=== PATIENT | female | born 1990 | race Two or more races ===

== ENCOUNTER 2017-02-17 14:30 | Outpatient (CLI) | payer OTHER | END 2017-02-17 14:31 | disposition home or self-care (01) | DX: G47.10 Hypersomnia, unspecified (principal); G47.8 Other sleep disorders; R06.83 Snoring ==

== ENCOUNTER 2017-03-01 21:33 | Emergency (ER) | payer OTHER ==
[2017-03-01] MEDS ORDERED: HYDROcod/ACETAM 5/325 MG TABLET PO STA (21:55)
--- NOTE | 2017-03-01 21:57 | ED Physician Documentation ---
History of Present Illness - Stated complaint Stated Complaint: GLF - Chief complaint Chief Complaint: General - History obtained from History obtained from: Patient - History of Present Illness Timing: Today (At [facility] she fell directly on her tailbone and has severe pain there. No other injuries. She did not hit her head. She does feel dizzy and out of sorts from the pain.) - Additonal information Additional information: no possibility of Review of Systems Constitutional: reports: Reviewed and negative Cardiac: reports: Reviewed and negative Respiratory: reports: Reviewed and negative PD PAST MEDICAL HISTORY - Past Surgical History Past Surgical History: No - Present Medications Home Medications: Ambulatory Orders Medication Instructions Recorded Confirmed HYDROcod/ACETAM 5/325 [[place] 5/325] 1 - 2 ea PO Q6H PRN #15 tablet 03/01/17 Ibuprofen 800 mg PO Q6HR PRN 03/01/17 03/01/17 Phentermine HCl 15 mg PO BID 03/01/17 03/01/17 - Allergies Allergies/Adverse Reactions: Allergies Allergy/AdvReac Type Severity Reaction Status Date / Time No Known Drug Allergies Allergy Verified 03/01/17 21:48 - Social History Does the pt smoke?: No Smoking Status: Former smoker Does the pt drink ETOH?: Yes Does the pt have substance abuse?: No - Immunizations Immunizations are current?: Yes PD ED PE NORMAL - Vitals Vital signs reviewed: Yes - General General: Alert and oriented X 3, Other (tearful, anxious) - HEENT HEENT: PERRL, EOMI - Neck Neck: Supple, no meningeal sign, No bony TTP - Back Back: Other (Normal gait, TTP coccyx) - Neuro Neuro: Alert and oriented X 3, Normal speech - Psych Psych: Normal mood, Normal affect Results - Vitals Vitals: Vital Signs - 24 hr 03/01/17 21:43 Temperature 36.8 C Heart Rate 89 Respiratory 18 Rate Blood Pressure 123/86 H O2 Saturation 98 Oxygen O2 Source Room air - Rads (name of study) Sacrum/coccyx Radiology: EMP read contemporaneously (minimally displaced coccyx frx) Departure - Departure Disposition: 01 Home, Self Care Clinical Impression: Fractured coccyx Qualifiers: Encounter type: initial encounter Fracture type: closed Qualified Code(s): S32.2XXA - Fracture of coccyx, initial encounter for closed fracture Condition: Good Record reviewed to determine appropriate education?: Yes Instructions: ED Fx Coccyx Prescriptions: HYDROcod/ACETAM 5/325 [[place] 5/325] 1 - 2 ea PO Q6H PRN #15 tablet PRN Reason: Pain Comments: Your blood pressure was elevated today on check in to the emergency department. This does not mean that you have hypertension, it is a common phenomenon to check into the emergency department and have elevated blood pressure. I recommend that you see your primary care physician within the week to have it rechecked when you're feeling better. Forms: Activity restrictions
[2017-03-01] MEDS ORDERED: HYDROcod/ACETAM 5/325 MG TABLET ONE (22:01)
--- NOTE | 2017-03-01 22:46 | XRAY Preliminary Report ---
Exam: XR Sacrum/Coccyx IMPRESSION: Minimally displaced coccygeal fracture. [facility] SITE ID: [id number]
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
[2017-03-01 23:06] VITALS: BP 105/66
== END 2017-03-01 23:05 | disposition home or self-care (01) ==
LOC: ED 21:33
DX: S32.2XXA Fracture of coccyx, initial encounter for closed fracture (principal); V00.121A Fall from non-in-line roller-skates, initial encounter; Y93.51 Activity, roller skating (inline) and skateboarding; Y92.331 Roller skating rink as the place of occurrence of the external cause; R03.0 Elevated blood-pressure reading, without diagnosis of hypertension; Z87.891 Personal history of nicotine dependence
CPT/HCPCS: 72220; 99283; A9270

== ENCOUNTER 2017-03-17 19:21 | Outpatient (CLI) | payer OTHER | END 2017-03-17 19:22 | disposition home or self-care (01) | LOC: SC 19:21 | PROVIDERS: ATTEND Internal Medicine Pulmonary Disease | DX: G47.61 Periodic limb movement disorder (principal) | CPT/HCPCS: 95810 ==

== ENCOUNTER 2017-03-27 12:42 | Emergency (ER) | payer OTHER ==
[2017-03-27] MEDS ORDERED: PROMETHAZINE INJ 25 MG in SODIUM CHLORIDE 0.9% 50 ML IV STA (13:01)
[2017-03-27] MEDS ORDERED: SODIUM CHLORIDE 0.9% 1,000 ML IV ONE (13:01)
--- NOTE | 2017-03-27 13:03 | ED Physician Documentation ---
PD HPI NVD - Stated complaint Stated Complaint: DIZZY,VOMITING - Chief complaint Chief Complaint: Abd Pain - History obtained from History obtained from: Patient - History of Present Illness Timing - onset: Today, Other (Shortly after getting to work this morning at 645 she developed a gradual onset frontal throbbing headache which has improved, this was followed by several episodes of vomiting and feels dizzy, somewhat of a mixture between vertigo and lightheadedness. It is worse if she stands up. It less so if she rotates her head. She denies any fevers. No dominant pain or diarrhea. No sick contacts or recent travel. 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 HEENT: None Psych: None Musculoskeletal: None Derm: None, Eczema - Past Surgical History Past Surgical History: No - Present Medications Home Medications: Ambulatory Orders Medication Instructions Recorded Confirmed HYDROcod/ACETAM 5/325 [[place] 5/325] 1 - 2 ea PO Q6H PRN #15 tablet 03/01/17 Ibuprofen 800 mg PO Q6HR PRN 03/01/17 03/01/17 Phentermine HCl 15 mg PO BID 03/01/17 03/01/17 Meclizine [Antivert] 25 mg PO Q6H PRN #20 tablet 03/27/17 Ondansetron HCl [Zofran] 4 mg PO Q6H PRN #10 tablet 03/27/17 - Allergies Allergies/Adverse Reactions: Allergies Allergy/AdvReac Type Severity Reaction Status Date / Time No Known Drug Allergies Allergy Verified 03/01/17 21:48 - Social History Does the pt smoke?: No Smoking Status: Former smoker Does the pt drink ETOH?: Yes Does the pt have substance abuse?: No - Immunizations Immunizations are current?: Yes PD ED PE NORMAL - Vitals Vital signs reviewed: Yes - General General: Alert and oriented X 3, No acute distress - HEENT HEENT: PERRL, EOMI, Pharynx benign - Neck Neck: Supple, no meningeal sign, No bony TTP - Cardiac Cardiac: RRR, No murmur - Respiratory Respiratory: No respiratory distress, Clear bilaterally - Abdomen Abdomen: Soft, Non tender - Extremities Extremities: No edema, No calf tenderness / cord - Neuro Neuro: Alert and oriented X 3, 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, No motor deficit, No sensory deficit, Normal speech - Psych Psych: Normal mood, Normal affect Results - Vitals Vitals: Vital Signs - 24 hr 03/27/17 03/27/17 12:50 14:08 Temperature 36.1 C L Heart Rate 107 H 72 Respiratory 18 16 Rate Blood Pressure 117/80 108/67 O2 Saturation 96 100 Oxygen O2 Source Room air - Labs Labs: Laboratory Tests 03/27/17 03/27/17 03/27/17 13:20 13:35 13:35 WBC 10.2 RBC 4.41 Hgb 12.8 Hct 37.8 MCV 85.8 MCH 29.0 MCHC 33.8 RDW 15.2 H Plt Count 322 MPV 7.7 L Neut # 6.9 H Lymph # 2.4 [place] # 0.7 Eos # 0.0 Baso # 0.1 Absolute Nucleated RBC 0.00 Nucleated RBCs 0.0 Sodium 136 Potassium 3.7 Chloride 101 Carbon Dioxide 25 Anion Gap 10.0 BUN 17 Creatinine 0.6 Estimated GFR (MDRD) 123 Glucose 92 Calcium 9.4 Total Bilirubin 0.3 AST 23 ALT 17 Alkaline Phosphatase 55 Total Protein 7.8 Albumin 4.2 Globulin 3.6 Albumin/Globulin Ratio 1.2 Lipase 16 L Urine Color YELLOW Urine Clarity CLEAR Urine pH >=9.0 H Ur Specific [place] 1.010 Urine Protein 30 H Urine Glucose (UA) NEGATIVE Urine Ketones NEGATIVE Urine Occult Blood LARGE H Urine Nitrite NEGATIVE Urine Bilirubin NEGATIVE Urine Urobilinogen 0.2 (NORMAL) Ur Leukocyte Esterase NEGATIVE Urine RBC 11-25 H Urine WBC 0-3 Ur Squamous Epith Cells FEW Squamous Urine Bacteria None Seen Ur Microscopic Review INDICATED Urine Culture Comments NOT INDICATED Urine HCG, Qual NEGATIVE PD MEDICAL DECISION MAKING - ED course ED course: 26 yo woman with nonspecific dizziness, more vertigo than lighteheaded, preceded by headache, gradual and not worst of life and followed by N/V. Feeling better after phenergan IV and fluids. Dizziness gone. Low suspicioun for SAH given above clinical symptoms. Departure - Departure Disposition: 01 Home, Self Care Clinical Impression: Dizziness and giddiness Vomiting Qualifiers: Vomiting type: unspecified Vomiting Intractability: non-intractable Nausea presence: with nausea Qualified Code(s): R11.2 - Nausea with vomiting, unspecified Headache Qualifiers: Headache type: unspecified Headache chronicity pattern: acute headache Intractability: not intractable Qualified Code(s): R51 - Headache Condition: Good Record reviewed to determine appropriate education?: Yes Instructions: ED Nausea Vomiting, Meclizine Prescriptions: Meclizine [Antivert] 25 mg PO Q6H PRN #20 tablet PRN Reason: Dizziness Ondansetron HCl [Zofran] 4 mg PO Q6H PRN #10 tablet PRN Reason: Nausea / Vomiting Comments: Call your doctor to arrange a follow up appointment. Make the next available appointment. In the interim return anytime if worse or if new symptoms develop.
[2017-03-27] MEDS ORDERED: PROMETHAZINE 25 MG/1 ML VIAL ONE (13:16)
[2017-03-27 13:45] LABS: BILIRUBIN,URINE NEGATIVE (NEGATIVE); PH,URINE >=9.0 PH (5.0-7.5); UA w/ MICROSCOPIC CHARGE YES
[2017-03-27 13:46] LABS: HCG UR QUAL NEGATIVE
[2017-03-27 13:49] LABS: BASOPHILS # (AUTO) 0.1 10^3/uL (0.0-0.1); EOSINOPHILS % (AUTO) 0.5 %; HCT - HEMATOCRIT 37.8 % (37.0-47.0); HGB - HEMOGLOBIN 12.8 g/dL (12.0-16.0); LYMPHOCYTES # (AUTO) 2.4 10^3/uL (1.5-3.5); LYMPHOCYTES % (AUTO) 23.8 %; MEAN CORPUSCULAR HGB CONC 33.8 g/dL (32.0-36.0); MEAN CORPUSCULAR VOLUME 85.8 fL (81.0-99.0); MEAN PLATELET VOLUME 7.7 fL (7.9-10.8); MONOCYTES # (AUTO) 0.7 10^3/uL (0.0-1.0); MONOCYTES % (AUTO) 7.2 %; NEUTROPHILS # (AUTO) 6.9 10^3/uL (1.5-6.6); NEUTROPHILS % (AUTO) 67.5 %; RED BLOOD COUNT 4.41 10^6/uL (4.20-5.40); RED CELL DISTRIBUTION WIDTH 15.2 % (12.0-15.0); UNCORRECTED WHITE BLOOD COUNT 10.2 x10^3/uL; WHITE BLOOD COUNT 10.2 x10^3/uL (4.8-10.8)
[2017-03-27 13:53] LABS: UR CULTURE IF IND NOT INDICATED; WBC,URINE 0-3 /HPF (0-5)
[2017-03-27 13:58] LABS: ALBUMIN/GLOBULIN RATIO 1.2 (1.0-2.2); BILIRUBIN,TOTAL 0.3 mg/dL (0.2-1.0); CALCIUM 9.4 mg/dL (8.5-10.3); CREATININE 0.6 mg/dL (0.4-1.0); POTASSIUM 3.7 mmol/L (3.5-5.0); TOTAL PROTEIN 7.8 g/dL (6.7-8.2)
--- NOTE | 2017-03-27 14:11 | CT Preliminary Report ---
Exam: CT Head W/O IMPRESSION: Normal head CT. [facility] SITE ID: [id number]
--- NOTE | 2017-03-27 14:14 | CT Report ---
EXAM: CT HEAD EXAM DATE: 03/27/2017 01:49 PM. CLINICAL HISTORY: Headache, vomiting. COMPARISON: None. TECHNIQUE: Multiaxial CT images were obtained from the foramen magnum to the vertex. IV contrast: Non e. Reformats: Coronal. In accordance with CT protocol optimization, one or more of the following dose reduction techniques w ere utilized for this exam: automated exposure control, adjustment of mA and/or KV based on patient s ize, or use of iterative reconstructive technique. FINDINGS: Parenchyma: No intraparenchymal hemorrhage. No evidence of mass, midline shift, or CT findings of inf arction. Hammond-white differentiation is distinct. Extraaxial Spaces: Normal for age. No subdural or epidural collections. Ventricles: Normal in size and position. Sinuses: Imaged paranasal sinuses, orbits, and mastoids show no significant abnormality. Bones: Unremarkable. Other: None. IMPRESSION: Normal head CT. [facility] Referring Provider Line: [phone] SITE ID: [id number]
[2017-03-27] MEDS ORDERED: KETOROLAC 60 MG/2 ML VIAL IVP STA (14:42)
[2017-03-27] MEDS ORDERED: KETOROLAC 30 MG/ML VIAL ONE (14:42)
[2017-03-27 14:50] VITALS: BP 110/67
== END 2017-03-27 14:51 | disposition home or self-care (01) ==
LOC: ED 12:42
DX: R42 Dizziness and giddiness (principal); R51 Headache; R11.2 Nausea with vomiting, unspecified; Z87.891 Personal history of nicotine dependence
CPT/HCPCS: 36415; 70450; 80053; 81001; 81003; 81025; 83690; 85025; 87086; 96374; 96375; 99283; 99284

== ENCOUNTER 2017-04-07 09:08 | Outpatient (CLI) | payer OTHER | END 2017-04-07 09:09 | disposition home or self-care (01) | LOC: SC 09:08 | PROVIDERS: ATTEND Nurse Practitioner Family | DX: G47.61 Periodic limb movement disorder (principal); R06.83 Snoring; G47.00 Insomnia, unspecified | CPT/HCPCS: 99212; 99214 ==

== ENCOUNTER 2017-11-02 19:16 | Emergency (ER) | payer OTHER ==
[2017-11-02 19:26] VITALS: BP 130/86
[2017-11-02] MEDS ORDERED: BACITRACIN OINT TOP STA (19:36)
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
== END 2017-11-02 19:43 | disposition home or self-care (01) ==
LOC: ED 19:16
DX: R23.8 Other skin changes (principal); R03.0 Elevated blood-pressure reading, without diagnosis of hypertension; Z87.891 Personal history of nicotine dependence
CPT/HCPCS: 99281; 99283

== ENCOUNTER 2018-01-05 10:29 | Outpatient (CLI) | payer OTHER | END 2018-01-05 10:30 | disposition home or self-care (01) | LOC: SC 10:29 | PROVIDERS: ATTEND Nurse Practitioner Family | DX: G47.10 Hypersomnia, unspecified (principal); R06.83 Snoring; G47.8 Other sleep disorders; E66.9 Obesity, unspecified; Z68.34 Body mass index [BMI] 34.0-34.9, adult | CPT/HCPCS: 99212; 99214 ==